=== PATIENT | female | born 1975 | race Native Hawaiian/Other Pacific Islander ===

== ENCOUNTER 2017-06-02 10:48 | Day surgery (SDC) | payer BC, OTHER ==
--- NOTE | 2017-06-02 11:39 | Anesthesia Day of Surgery ---
Anesthesia Day of Surgery - Day of Surgery Patient Examined: Yes Patient H&P Reviewed: Yes Patient is NPO: Yes
--- NOTE | 2017-06-02 11:39 | Anesthesia Consultation ---
Anesthesia Consult and Med Hx Date of service: 06/02/17 - Airway Anesthetic Teeth Evaluation: Good ROM Head & Neck: Adequate Mental/Hyoid Distance: Adequate Mallampati Class: Class II Intubation Access Assessment: Probably Good - Pulmonary Exam CTA: Yes - Cardiac Exam Cardiac Exam: RRR - Pre-Operative Health Status ASA Pre-Surgery Classification: ASA2 Proposed Anesthetic Plan: General - Pulmonary Hx Smoking: No - Cardiovascular System Hx Hypertension: No - Central Nervous System Hx Psychiatric Problems: No - Other Systems Hx Alcohol Use: No Hx Substance Use: No Hx Cancer: No - Additional Comments Anesthesia Medical History Comments: High Cholesterol
[2017-06-02] MEDS ORDERED: NACL BACTERIOSTATIC INFILTRATI ONE (11:44)
[2017-06-02] MEDS ORDERED: LACTATED RINGERS 1,000 ML IV SCH (12:00)
[2017-06-02] MEDS ORDERED: VERSED IV NR (12:00)
[2017-06-02] MEDS ORDERED: PEPCID IV NR (12:00)
[2017-06-02] MEDS ORDERED: ZEMURON IV ONE (12:07)
[2017-06-02] MEDS ORDERED: XYLOCAINE MPF 2% ONE (12:07)
[2017-06-02] MEDS ORDERED: DIPRIVAN 10 MG/ML IV ONE (12:07)
[2017-06-02] MEDS ORDERED: SUBLIMAZE ONE (12:07)
[2017-06-02 12:39] LABS: Hematocrit 39.1 % (30.3-42.9); Hemoglobin 13.3 gm/dl (10.1-14.3)
[2017-06-02] MEDS ORDERED: DECADRON ONE (12:47)
[2017-06-02] MEDS ORDERED: ROBINUL ONE (12:47)
[2017-06-02] MEDS ORDERED: NEOSTIGMINE ONE (12:47)
[2017-06-02] MEDS ORDERED: ZOFRAN ONE (12:47)
[2017-06-02] MEDS ORDERED: MARCAINE 0.5% 30 ML INFILTRATI ONE (12:59)
[2017-06-02] MEDS ORDERED: ANCEF/STERILE WATER 2 GM/20 ML IV NR (13:00)
[2017-06-02] MEDS ORDERED: NACL 0.9% IR ONE (13:25)
[2017-06-02] MEDS ORDERED: MARCAINE 0.5% INFILTRATI ONE (13:25)
[2017-06-02] MEDS ORDERED: DILAUDID ONE ×2 (13:29→13:57)
--- NOTE | 2017-06-02 13:41 | Discharge Summary ---
Short Stay Discharge Plan Activity: advance as tolerated Diet: regular Wound: per your surgeon's advice (`) Follow up with: SLIM MORAES MD [Primary Care Provider] - 7 Days
[2017-06-02] MEDS ORDERED: DILAUDID IV PRN (13:52)
[2017-06-02 14:45] VITALS: BP 109/64
[2017-06-02] MEDS ORDERED: NORCO 5/325 PO ONE (14:49)
--- NOTE | 2017-06-02 18:11 | Operative Report ---
PREOPERATIVE DIAGNOSIS: Umbilical hernia. POSTOPERATIVE DIAGNOSIS: Umbilical hernia. SURGERY: Repair of umbilical hernia, laparoscopic. ANESTHESIA: General. ESTIMATED BLOOD LOSS: Minimal. FINDINGS: The patient had a hernial defect in the umbilical area that is about 2.5 x 1.5 cm, nothing stuck into it. So, I used a Ventralex graft medium size for that purpose. DESCRIPTION OF PROCEDURE: With the patient in supine position, after cleansing and draping in usual fashion, I made a small incision in the right mid upper abdomen with the Veress needle, I was able to do CO2 up to pressure of 15, following which #5 trocar was inserted. Then, a camera was used #5 to insert another trocar in the right mid lower abdomen. I was able to see the area, it is just by the umbilicus and thus I had to make a cut or an incision in that area through which I was able to introduce a medium sized Ventralex graft. This was then pulled in the usual fashion and we used tacker to tack it all around in 2 rows. We had good hemostasis. We were well satisfied. We took pictures after we finished. I did take a picture of the right ovary, tube and the uterus as well. At that point, all the trocars were removed closing the skin with 4-0 Vicryl and the fascia with a 0-Vicryl figure-of -eight and bandage were applied with multiple layers over the umbilicus and 2 Band-Aids in usual fashion. The patient was then transferred to the recovery room in good condition. JOB# [id number] BLAYNE/LUKE
--- NOTE | 2017-06-02 19:22 | Discharge Summary ---
FINAL DIAGNOSIS: Small umbilical hernia. HOSPITAL COURSE: This patient was seen in my office about a week ago because of pain to the area referred by her family physician. At that point, I could see the hernial defect in the umbilical area. Otherwise, the examination was negative. So today, she came for definitive surgical intervention. This was done where the scope, where a medium sized Ventralex graft was applied. We were well satisfied. She was then discharged home, to be seen in my office in 10 days. I gave a prescription for [place], to call me if she has any problem, otherwise no driving after I see her or at least for 5 days. JOB# [id number] BLAYNE/LUKE
== END 2017-06-02 15:52 | disposition home or self-care (01) ==
LOC: OR 10:48
PROVIDERS: ATTEND Surgery
DX: K42.9 Umbilical hernia without obstruction or gangrene (principal); E78.00 Pure hypercholesterolemia, unspecified; Z79.899 Other long term (current) drug therapy
CPT/HCPCS: 36415; 49652; 81025; 85014; 85018; C1781; J0690; J1100; J1170; J2250; J2405; J2704; J2710; J3010; J7120